=== PATIENT | male | born 1960 | race Caucasian/White ===

== ENCOUNTER 2021-02-20 20:48 | Emergency (ER) | payer OTHER, MEDICARE ==
[2021-02-21 02:12] LABS: AMPHETAMINES NEGATIVE (NEGATIVE); BARBITURATES NEGATIVE (NEGATIVE); BILIRUBIN NEGATIVE (NEGATIVE); BLOOD NEGATIVE Ery/uL (NEGATIVE); CLARITY CLEAR (CLEAR); COLOR YELLOW (YELLOW); ECSTASY (MDMA) NEGATIVE (NEGATIVE); GLUCOSE (U) 2+ mg/dL (NORMAL); LEUKOCYTES NEGATIVE Leu/uL (NEGATIVE); MARIJUANA (THC) NEGATIVE (NEGATIVE); METHADONE NEGATIVE (NEGATIVE); NITRITE NEGATIVE (NEGATIVE); OPIATES NEGATIVE (NEGATIVE); OXYCODONE NEGATIVE (NEGATIVE); PROTEIN 2+ mg/dL (NEGATIVE); SPECIFIC GRAVITY 1.025 (1.001-1.030); UROBILINOGEN 0.2 mg/dL (0.2-1.0)
[2021-02-21 02:23] LABS: SPERM PRESENT; SQUAMOUS EPITHELIAL CELLS RARE; URINARY WBC RARE
[2021-02-21 02:46] LABS: BASOPHIL 0.6 % (0-2); EOSINOPHIL 2.6 % (0-5); HGB 11.6 g/dl (13.2-18.0); LYMPHOCYTE 33.3 % (15-48); MCH 28.6 pg (25.0-31.0); MCHC 31.4 g/dL (32.0-36.0); MCV 91.4 fL (78.0-100.0); MONOCYTE 7.3 % (0-12); NEUTROPHIL 54.9 % (41-80); NRBC 0.2; PLT 169 K/uL (150-400); RBC 4.05 M/uL (4.70-6.00); RDW 14.7 % (11.5-14.0); WBC 8.7 K/uL (4.0-10.5)
[2021-02-21 03:05] LABS: ACETAMINOPHEN (TYLENOL) < 2.0 ug/mL (10.0-30.0); ALBUMIN 2.9 g/dL (3.4-5.0); ALKALINE PHOSHATASE 73 U/L (46-116); ALT 31 U/L (16-63); AST 18 U/L (15-37); BILIRUBIN - TOTAL 0.2 mg/dL (0.2-1.0); BUN 24 mg/dL (7-18); BUN/CREAT RATIO (CALC) 19.5 RATIO; CHLORIDE 102 mmol/L (98-107); CO2 (BICARBONATE) 31 mmol/L (21-32); CREATININE 1.23 mg/dL (0.67-1.17); GLOBULIN (CALCULATION) 3.8 g/dL; GLUCOSE 358 mg/dL (74-106); POTASSIUM 4.4 mmol/L (3.5-5.1); TOTAL PROTEIN 6.7 g/dL (6.4-8.2)
[2021-02-21 03:33] LABS: CORONAVIRUS 2019 SARS-COV-2 NEGATIVE (NEGATIVE); INFLUENZA A NAA NEGATIVE (NEGATIVE)
== END 2021-02-21 05:48 | disposition home or self-care (01) ==
LOC: FER 20:48
PROVIDERS: Internal Medicine
DX: F20.9 Schizophrenia, unspecified (principal); F31.9 Bipolar disorder, unspecified; E11.22 Type 2 diabetes mellitus with diabetic chronic kidney disease; E11.65 Type 2 diabetes mellitus with hyperglycemia; N18.9 Chronic kidney disease, unspecified; D63.1 Anemia in chronic kidney disease; F17.210 Nicotine dependence, cigarettes, uncomplicated; Z20.822 Contact with and (suspected) exposure to COVID-19
CPT/HCPCS: 36415; 80053; 80305; 81001; 85025; 99284; G0480; U0002

== ENCOUNTER 2021-04-30 17:28 | Emergency (ER) | payer MEDICARE, OTHER ==
[2021-04-30 18:47] LABS: BASOPHIL 0.8 % (0-2); EOSINOPHIL 4.4 % (0-5); HGB 11.2 g/dl (13.2-18.0); LYMPHOCYTE 33.7 % (15-48); MCH 28.5 pg (25.0-31.0); MCHC 31.1 g/dL (32.0-36.0); MCV 91.6 fL (78.0-100.0); MPV 11.8 fL (6.0-9.5); NEUTROPHIL 52.3 % (41-80); NRBC 0; PLT 170 K/uL (150-400); RBC 3.93 M/uL (4.70-6.00); RDW 14.6 % (11.5-14.0); WBC 7.2 K/uL (4.0-10.5)
[2021-04-30 19:11] LABS: ALBUMIN 2.9 g/dL (3.4-5.0); BILIRUBIN - TOTAL 0.2 mg/dL (0.2-1.0); BUN/CREAT RATIO (CALC) 11.5 RATIO; CREATININE 1.3 mg/dL (0.67-1.17); GLOBULIN (CALCULATION) 3.6 g/dL; POTASSIUM 3.5 mmol/L (3.5-5.1); TOTAL PROTEIN 6.5 g/dL (6.4-8.2)
[2021-04-30 20:16] LABS: CORONAVIRUS 2019 SARS-COV-2 NEGATIVE (NEGATIVE); INFLUENZA A NAA NEGATIVE (NEGATIVE)
[2021-04-30 21:58] LABS: BILIRUBIN NEGATIVE (NEGATIVE); BLOOD TRACE-INTACT Ery/uL (NEGATIVE); CLARITY CLEAR (CLEAR); COLOR YELLOW (YELLOW); GLUCOSE (U) NORMAL (NORMAL); LEUKOCYTES NEGATIVE Leu/uL (NEGATIVE); NITRITE NEGATIVE (NEGATIVE); PROTEIN 3+ mg/dL (NEGATIVE); SPECIFIC GRAVITY 1.025 (1.001-1.030); UROBILINOGEN 0.2 mg/dL (0.2-1.0)
[2021-04-30 22:09] LABS: RENAL EPITHELIAL CELLS RARE; URINARY RBC RARE
== END 2021-04-30 22:50 | disposition home or self-care (01) ==
LOC: FER 17:28
PROVIDERS: Emergency Medicine
DX: E83.42 Hypomagnesemia (principal); R10.9 Unspecified abdominal pain; M25.521 Pain in right elbow; E11.9 Type 2 diabetes mellitus without complications; I10 Essential (primary) hypertension; J44.9 Chronic obstructive pulmonary disease, unspecified; F03.90 Unspecified dementia, unspecified severity, without behavioral disturbance, psychotic disturbance, mood disturbance, and anxiety; Z20.822 Contact with and (suspected) exposure to COVID-19; W19.XXXA Unspecified fall, initial encounter; Y92.129 Unspecified place in nursing home as the place of occurrence of the external cause
CPT/HCPCS: 36415; 70450; 71250; 72125; 80053; 81001; 82140; 83735; 85025; 93005; J3475; U0002

== ENCOUNTER 2021-08-18 12:10 | Emergency (ER) | payer OTHER | END 2021-08-18 15:47 | disposition home or self-care (01) | LOC: FER 12:10 | DX: S76.011A Strain of muscle, fascia and tendon of right hip, initial encounter (principal); S96.912A Strain of unspecified muscle and tendon at ankle and foot level, left foot, initial encounter; I10 Essential (primary) hypertension; E11.9 Type 2 diabetes mellitus without complications; W19.XXXA Unspecified fall, initial encounter; Y92.009 Unspecified place in unspecified non-institutional (private) residence as the place of occurrence of the external cause | CPT/HCPCS: 70450; 72125; 73502; 73610 ==

== ENCOUNTER 2021-08-25 17:56 | Inpatient (IN) | payer MEDICARE, OTHER ==
[~2021-08-25] VITALS: Ht 172.7 cm; Wt 115.7 kg
[2021-08-25] MEDS ORDERED: LIPITOR 10MG TA10 MG PO (23:24)
[2021-08-25] MEDS ORDERED: VITAMIN B-121000 MC1 PO (23:25)
[2021-08-25] MEDS ORDERED: COREG 3.125M3.125 MG PO (23:25)
[2021-08-25] MEDS ORDERED: FENOFIBRATE134 MG PO (23:27)
[2021-08-25] MEDS ORDERED: VITAMIN D21250 MCG PO (23:27)
[2021-08-25] MEDS ORDERED: FLONASE ALLER15.8 ML (23:28)
[2021-08-25] MEDS ORDERED: FOLIC ACID1 MG PO (23:29)
[2021-08-25] MEDS ORDERED: NEURONTIN300 MG PO (23:30)
[2021-08-25] MEDS ORDERED: GVOKE HYPO1 MG/0.2 M IJ (23:31)
[2021-08-25] MEDS ORDERED: INVEGA SUS234 MG/1.5 IM (23:32)
[2021-08-25] MEDS ORDERED: KLONOPIN1 MG PO (23:33)
[2021-08-25] MEDS ORDERED: CONSTULOSE10 GM/15 M PO (23:34)
[2021-08-25] MEDS ORDERED: XALATAN2.5 ML EYEBOTH (23:35)
[2021-08-25] MEDS ORDERED: KEPPRA100 MG/1 M PO (23:35)
[2021-08-25] MEDS ORDERED: METFORMIN HCL500 MG PO (23:36)
[2021-08-25] MEDS ORDERED: LEVOTHYROXINE150 MC1 PO (23:36)
[2021-08-25] MEDS ORDERED: MUCINEX 600MG600 MG PO (23:37)
[2021-08-25] MEDS ORDERED: PROTONIX 40MG T40 MG PO (23:37)
[2021-08-25] MEDS ORDERED: WEGOVY0.5 MG/0.5 SC (23:38)
[2021-08-25] MEDS ORDERED: FLOMAX0.4 MG PO (23:39)
[2021-08-25] MEDS ORDERED: SYMBICORT 80-10.2 GM INH (23:39)
[2021-08-25] MEDS ORDERED: ZYRTEC10 M3 PO (23:40)
[2021-08-25] MEDS ORDERED: SPIRIVA18 MCG INH (23:41)
[2021-08-25] MEDS ORDERED: BIOFREEZE89 ML TOP (23:43)
[2021-08-25] MEDS ORDERED: TEGRETOL200 MG PO (23:44)
[2021-08-25] MEDS ORDERED: ASPIRIN EC81 MG PO (23:44)
[2021-08-25] MEDS ORDERED: MAG-OXIDE 400M400 MG PO (23:45)
[2021-08-25] MEDS ORDERED: PRINIVIL20 MG PO (23:45)
[2021-08-25] MEDS ORDERED: VASCEPA1 GM PO (23:46)
[2021-08-25] MEDS ORDERED: ACETAMINOPHEN325 MG PO (23:46)
[2021-08-25] MEDS ORDERED: LANTUS **100 UNITS/ SC (23:49)
[2021-08-25] MEDS ORDERED: NOVOLOG100 UNIT/1 SC (23:50)
[2021-08-27 07:15] LABS: BUN/CREAT RATIO (CALC) 15.4 RATIO; CREATININE 1.17 mg/dL (0.67-1.17); POTASSIUM 3.7 mmol/L (3.5-5.1)
--- NOTE | 2021-08-27 09:56 | NUR ---
PATIENT IS NOT WANTING TO BE BOTHERED WITH THE MORNING, WILL NOT OPEN EYES BUT WILL TAKE MEDICATIONS. STATES HE WANTS TO BE LEFT ALONE, PATIENT HAS NOT TOUCHED BREAKFAST.
[2021-08-28 07:23] LABS: BUN/CREAT RATIO (CALC) 15.4 RATIO; CREATININE 1.23 mg/dL (0.67-1.17); POTASSIUM 4.1 mmol/L (3.5-5.1)
[2021-08-29 06:05] LABS: BUN/CREAT RATIO (CALC) 19.2 RATIO; CREATININE 1.46 mg/dL (0.67-1.17); POTASSIUM 4.3 mmol/L (3.5-5.1)
--- NOTE | 2021-08-29 11:27 | NUR ---
PATIENT HAS BEEN VERY PLEASANT TODAY. HAS DONE EVERYTHING ASKED WITH NO ISSUES. PATIENT'S SPEECH IS GARBLED AND AT TIMES HARD TO UMDERSTAND BUT IS VERY COOPERTIVE WITH ANYTHING THAT IS ASKED OF HIM. PATIENT IS EATING AND DRINKING WELL. APPITITE HAS INCREASE. SLEEPS WELL, ISN'T A MORNING PERSON, LIKES TO SLEEP LATE.
--- NOTE | 2021-09-01 15:31 | NUR ---
PER CHARLA, PT STATE GUARDIAN, PT. WOULD NEED TO BE ABLE TO DRAW UP HIS INSULIN AND GIVE IT TO HIMSELF. DISCUSSED WITH NURSE MANDA AND THE CORRECTIONAL CAPTAIN, ILA, WHO BOTH AGREE THAT PT IS NOT ABLE TO REMEMBER TO DRAW UP HIS INSULIN OR BE ABLE TO REMEMBER TO TAKE IT. PER MANDA, PT KEEPS ASKING HER WHAT HIS INSULIN SHOT IS FOR. PER CHARLA, SHE ADVISED THAT SHE HAS APPEALED PT DISCHARGE FROM [facility] WITH [facility].
[2021-09-02 06:50] LABS: BUN/CREAT RATIO (CALC) 17.5 RATIO; CREATININE 1.14 mg/dL (0.67-1.17); POTASSIUM 4.1 mmol/L (3.5-5.1)
[2021-09-02 08:14] LABS: BUN/CREAT RATIO (CALC) 17.3 RATIO; CREATININE 1.1 mg/dL (0.67-1.17); POTASSIUM 4.1 mmol/L (3.5-5.1)
[2021-09-02 18:53] LABS: BUN/CREAT RATIO (CALC) 17.6 RATIO; CREATININE 1.02 mg/dL (0.67-1.17); POTASSIUM 4.3 mmol/L (3.5-5.1)
[2021-09-03 07:07] LABS: ALBUMIN 2.7 g/dL (3.4-5.0); BILIRUBIN - TOTAL 0.2 mg/dL (0.2-1.0); BUN/CREAT RATIO (CALC) 23.2 RATIO; CREATININE 1.12 mg/dL (0.67-1.17); GLOBULIN (CALCULATION) 3.1 g/dL; POTASSIUM 4.2 mmol/L (3.5-5.1); TOTAL PROTEIN 5.8 g/dL (6.4-8.2)
[2021-09-03 08:59] LABS: CHOLESTEROL 178 mg/dL (<200); HDL 36 mg/dL (40-60); LDL - DIRECT 89 mg/dL (<100); TRIGLYCERIDES 367 mg/dL (<150)
--- NOTE | 2021-09-03 18:23 | NUR ---
PATIENT STARTED TO SCRATCH HIS ARM AND MADE IT BLEED, PIC ON CHART
[2021-09-04 07:58] LABS: BUN/CREAT RATIO (CALC) 17.4 RATIO; CREATININE 1.09 mg/dL (0.67-1.17); POTASSIUM 4.2 mmol/L (3.5-5.1)
--- NOTE | 2021-09-04 08:43 | NUR ---
AT 1820 ON 09/03 THE PATIENT WAS BY THE NURSE'S DESK SITTING IN HIS WHEELCHAIR. THE PATIENT HIT THE WINDOW WITH HIS FIST, AND BEGAN TO HIT HIMSELF ON THE LEFT SHOULDER. HE BECAME AGGITATED STATING THAT HE WAS ITCHING AND THEN BEGAN TO SCRATCH HIS LEFT SHOULDER TO THE POINT BLOOD WAS DRAWN. PATIENT WAS TAKEN BACK TO HIS ROOM AND PER MD [place] 10 MG WAS GIVEN IM. WOUND WAS DRESSED, PATIENT RESTING COMFORTABLE.
--- NOTE | 2021-09-04 09:15 | NUR ---
PATIENT IS RESTING, DID NOT WAKE UP FOR BREAKFAST
[2021-09-05 06:36] LABS: HCT 31.5 % (42.0-52.0); MCH 30.2 pg (25.0-31.0); MCHC 34.9 g/dL (32.0-36.0); MCV 86.5 fL (78.0-100.0); RBC 3.64 M/uL (4.70-6.00); RDW 14.4 % (11.5-14.0); WBC 7.1 K/uL (4.0-10.5)
[2021-09-05 06:58] LABS: BUN/CREAT RATIO (CALC) 15.4 RATIO; CREATININE 0.91 mg/dL (0.67-1.17); POTASSIUM 4.1 mmol/L (3.5-5.1)
[2021-09-06 07:01] LABS: ALBUMIN 2.8 g/dL (3.4-5.0); BILIRUBIN - TOTAL 0.3 mg/dL (0.2-1.0); GLOBULIN (CALCULATION) 3.1 g/dL; POTASSIUM 4.5 mmol/L (3.5-5.1); TOTAL PROTEIN 5.9 g/dL (6.4-8.2)
[2021-09-09 07:14] LABS: BUN/CREAT RATIO (CALC) 16.5 RATIO; CREATININE 1.15 mg/dL (0.67-1.17); POTASSIUM 4.4 mmol/L (3.5-5.1)
--- NOTE | 2021-09-13 09:18 | NUR ---
DISCUSSED OBTAINING RE-EVALUATION WITH RUSTY DELONG WITH DR. ARRIOLA FOR POSSIBLE PLACEMENT. RUSTY DELONG CALLED AND CONSULT INITIATED.
[2021-09-16 06:17] LABS: BASOPHIL 0.6 % (0-2); EOSINOPHIL 2.2 % (0-5); HCT 30.2 % (42.0-52.0); HGB 10.4 g/dl (13.2-18.0); LYMPHOCYTE 37.3 % (15-48); MCH 30.5 pg (25.0-31.0); MCHC 34.4 g/dL (32.0-36.0); MCV 88.6 fL (78.0-100.0); MONOCYTE 9.2 % (0-12); MPV 11.1 fL (6.0-9.5); NEUTROPHIL 49.5 % (41-80); NRBC 0; PLT 140 K/uL (150-400); RBC 3.41 M/uL (4.70-6.00); WBC 6.7 K/uL (4.0-10.5)
[2021-09-16 07:23] LABS: ALBUMIN 2.9 g/dL (3.4-5.0); BILIRUBIN - TOTAL 0.2 mg/dL (0.2-1.0); BUN/CREAT RATIO (CALC) 16.2 RATIO; CREATININE 1.05 mg/dL (0.67-1.17); POTASSIUM 4.6 mmol/L (3.5-5.1); TOTAL PROTEIN 5.9 g/dL (6.4-8.2)
[2021-09-18 07:26] LABS: BUN/CREAT RATIO (CALC) 17.5 RATIO; CREATININE 1.03 mg/dL (0.67-1.17); POTASSIUM 4.1 mmol/L (3.5-5.1)
--- NOTE | 2021-09-18 16:27 | NUR ---
SPOKE WITH RADHA, STATE GUARDIAN. SHE ADVISED THAT PT HAS MEDICARE A & B HE HAS [facility] [id number] AND MEDICAID [id number]. HE ALSO HAS MEDICARE PART D REFERRALS CONTINUE TO BE SENT OUT TO [facility]URSING [facility]OM[facility].
[2021-09-19 07:13] LABS: BUN/CREAT RATIO (CALC) 19.8 RATIO; CREATININE 1.06 mg/dL (0.67-1.17); POTASSIUM 3.9 mmol/L (3.5-5.1)
[2021-09-21 06:37] LABS: BUN/CREAT RATIO (CALC) 22.1 RATIO; CREATININE 1.13 mg/dL (0.67-1.17)
[2021-09-22 08:08] LABS: BUN/CREAT RATIO (CALC) 19.1 RATIO; CREATININE 0.94 mg/dL (0.67-1.17); POTASSIUM 4.1 mmol/L (3.5-5.1)
--- NOTE | 2021-09-22 13:23 | NUR ---
MEDICAL CLAIMS ASSISTANT ENTERED ROOM WITH LUNCH AND PATIENT BECAME UPSET SLUNG FOOD AND CALL LIGHT STATING HE DIDN'T WANT THAT. OIL PROGRAM COMPLIANCE SPECIALIST CALLED WHO ATTEMPTED TO CALM PATIENT. PATIENT SLUNG TABLE AT IMPROVEMENT RN CLIMBING OOB AND YELLING, REFUSED TO SIT BACK DOWN AND PATIENT WAS VERY UNSTABLE THUS REQUIRING CONTACT GUARD FOR SAFETY AND PATIENT UPSET ABOUT THIS. [place] HANNA CALLED AND STAFF RESPONDED. PATIENT CONTINUES TO YELL BUT WAS ASSISTED BACK TO BED SUCCESSFULLY. GEODON GIVEN PER ORDER. PATIENT UPSET YELLING HE DID NOT THROW HIS FOOD, REFUSING TO BE REDIRECTED. SECURITY IN ROOM AT THIS TIME PATIENT HAD ALSO YANKED AT HIS COVERS, SLINGING HIS ARMS AGAINST THE SIDERAILS, HITTING HIMSELF AND WAS UNABLE TO REDIRECT
[2021-09-23 07:51] LABS: BUN/CREAT RATIO (CALC) 18.1 RATIO; CREATININE 1.05 mg/dL (0.67-1.17)
--- NOTE | 2021-09-24 02:41 | NUR ---
PATIENT HAS BEEN CAUGHT WITH SEVERAL CANS OF SODA HE HAD GOTTEN FROM [employer] IN HALLWAY, PATIENT UPSET WHEN STAFF REMOVED FROM POSSESSION. PATIENT EDUCATED ON FLUID RESTRICTION
--- NOTE | 2021-09-24 14:24 | NUR ---
PATIENT GETTING FRUSTRATED THAT CERTAIN STAFF MEMBERS ARE NOT WORKING TODAY, AND GETTING MAD AND PUNCHING HISSELF IN THE HEAD AND PUNCHING THE WINDOW AT NUSING STATION. PATIENT ALSO REFUSING TO EAT LUNCH DUE TO THIS. CALL PLACES TO [facility] [place] FOR ANOTHER EVALUATION.
--- NOTE | 2021-09-24 22:31 | NUR ---
PATIENT STATES HE WANTED A SHOWER, SO PATIENT WAS EDUATED THAT THE MALE AID WOULD ASSIST HIM IF HE WANTED A SHOWER BECAUSE AT THIS TIME THE NURSES ARE BUSY. HE STATED THAT HE WAS NOT TAKING A SHOWER UNLESS A FEMALE WAS HELPING HIM. PATIENT WALKED OUT IN THE HALLWAY WITH THE AIDE AND CONTINUED TO ARGUE, PATIENT STATED CLAWING AT HIS SKIN. EDUCATED NOT TO SCATCH DUE TO RISK FOR SKIN INJURY.
[2021-09-25 07:14] LABS: HCT 30.2 % (42.0-52.0); HGB 10.6 g/dl (13.2-18.0); MCH 31.1 pg (25.0-31.0); MCHC 35.1 g/dL (32.0-36.0); MCV 88.6 fL (78.0-100.0); RBC 3.41 M/uL (4.70-6.00); RDW 14.4 % (11.5-14.0); WBC 5.7 K/uL (4.0-10.5)
[2021-09-25 08:01] LABS: BILIRUBIN - TOTAL 0.3 mg/dL (0.2-1.0); BUN/CREAT RATIO (CALC) 15.4 RATIO; CREATININE 1.04 mg/dL (0.67-1.17); GLOBULIN (CALCULATION) 3.2 g/dL; MAGNESIUM 1.4 mg/dL (1.8-2.4); PHOSPHORUS 3.8 mg/dL (2.6-4.7); POTASSIUM 4.1 mmol/L (3.5-5.1); TOTAL PROTEIN 6.2 g/dL (6.4-8.2)
[2021-09-26 06:30] LABS: HCT 28.9 % (42.0-52.0); HGB 10.1 g/dl (13.2-18.0); MCH 30.8 pg (25.0-31.0); MCHC 34.9 g/dL (32.0-36.0); MCV 88.1 fL (78.0-100.0); RBC 3.28 M/uL (4.70-6.00); RDW 14.4 % (11.5-14.0); WBC 5.4 K/uL (4.0-10.5)
[2021-09-26 06:53] LABS: BUN/CREAT RATIO (CALC) 17.5 RATIO; CREATININE 0.97 mg/dL (0.67-1.17); POTASSIUM 4.1 mmol/L (3.5-5.1)
--- NOTE | 2021-09-28 06:16 | NUR ---
PATIENT GOT SELF UP OUT OF BED UNATTENDED, PATIENT UP AT NURSES STATION REQUESTING HIS MORNING MEDICATIONS, ASKING WHERE HIS NURSES ARE, STAFF NURSE EXPLAINED TO PATIENT THAT DAYSHIFT NURSES WERE NOT HERE YET, PATIENT BEGAN SPITTING IN FLOOR
--- NOTE | 2021-09-30 23:39 | NUR ---
PATIENT SITTING UP AT NURSES STATION, PATIENT UPSET OVER NOT GOING OUTSIDE. PATIENT BEGAN KICKING LEGS AGAINST FLOOR AND FOOT RESTS ON WHEELCHAIR. ABLE TO ASK RESIDENT TO SELF CALM
--- NOTE | 2021-10-01 16:01 | NUR ---
KAREN MET WITH STAFF FROM [facility] THIS DATE. SHANNONJUVENTINO FRANCIS OFFERED HIM A TO COME TO THEIR FACIITY. KAREN HAS NOT ACCEPTED AT THIS TIME, LEANNSED STATE ELIAN GARCIA OF THIS INFORMATION.
[2021-10-04 06:43] LABS: POTASSIUM 4.1 mmol/L (3.5-5.1)
--- NOTE | 2021-10-05 05:41 | NUR ---
PATIENT HAS BEEN AWAKE AT NURSES STATION ALL NIGHT, MULTI ATTEMPTS MADE TO ASSIST WITH GOING TO BED, BUT REFUSED.
--- NOTE | 2021-10-05 14:48 | NUR ---
PATIENT AT [facility] SULKING THAT HE'S JUST NOT GOING THEN TO THE BLESSED ASSURANCE SINCE HE STATED HE WAS TOLD HE WAS GOING WEDNESDAY AND NOW CHANGED TO WEDNESDAY. HOLLERED TO STAFF TO CALL THE DISCHARGE PLANNERS AND MANAGEMENT BECAUSE HE WANTS TO KNOW "RIGHT NOW, TODAY" WHAT THE PLAN IS. FOUND AT DOOR OF BATHROOM ATTEMPTING TO TAKE SELF TO [facility], WAS REDIRECTED
[2021-10-06] MEDS ORDERED: CLONAZEPAM0.5 MG PO (17:54)
[2021-10-06] MEDS ORDERED: SYMBICORT 80-10.2 GM INH (17:54)
[2021-10-06] MEDS ORDERED: FENOFIBRATE67 MG PO (17:54)
[2021-10-06] MEDS ORDERED: FLOMAX0.4 MG PO (17:54)
[2021-10-06] MEDS ORDERED: PROTONIX 40MG T40 MG PO (17:54)
[2021-10-06] MEDS ORDERED: LEVOTHYROXINE150 MC1 PO (17:54)
[2021-10-06] MEDS ORDERED: FOLIC ACID1 MG PO (17:54)
[2021-10-06] MEDS ORDERED: HYDRALAZINE 10M10 MG PO (17:54)
[2021-10-06] MEDS ORDERED: METFORMIN HCL500 MG PO (17:54)
[2021-10-06] MEDS ORDERED: COREG 3.125M3.125 MG PO (17:54)
[2021-10-06] MEDS ORDERED: NORVASC5 MG PO (17:54)
[2021-10-06] MEDS ORDERED: FLONASE ALLER15.8 ML (17:54)
[2021-10-06] MEDS ORDERED: LEVETIRACETAM500 MG PO (17:54)
[2021-10-06] MEDS ORDERED: NEURONTIN300 MG PO (17:54)
[2021-10-06] MEDS ORDERED: TEGRETOL200 MG PO (17:54)
[2021-10-06] MEDS ORDERED: ALOGLIPTIN12.5 MG PO (17:54)
[2021-10-06] MEDS ORDERED: ASPIRIN EC81 MG PO (17:54)
[2021-10-06] MEDS ORDERED: XALATAN2.5 ML EYEBOTH (17:54)
[2021-10-06] MEDS ORDERED: SPIRIVA18 MCG INH (17:54)
[2021-10-06] MEDS ORDERED: MAG-OXIDE 400M400 MG PO (17:54)
[2021-10-06] MEDS ORDERED: PRINIVIL20 MG PO (17:54)
[2021-10-06] MEDS ORDERED: LIPITOR 10MG TA10 MG PO (17:54)
--- NOTE | 2021-10-07 15:53 | NUR ---
10/07/21 Mr. Bui was discharged to [facility] as arranged by yulissa Aguirre. [facility] staff provided transportation.
== END 2021-10-07 09:20 | disposition home or self-care (01) | DRG 643 ==
LOC: FMS 17:56
PROVIDERS: Allergy & Immunology Allergy; Internal Medicine; Nurse Practitioner; Nurse Practitioner Acute Care; ADMIT Family Medicine
PROC: B24BZZZ Ultrasonography of Heart with Aorta (ICD-10-PCS; principal; 2021-08-29)
DX: E22.2 Syndrome of inappropriate secretion of antidiuretic hormone (principal); G93.41 Metabolic encephalopathy; N17.9 Acute kidney failure, unspecified; L97.829 Non-pressure chronic ulcer of other part of left lower leg with unspecified severity; L97.819 Non-pressure chronic ulcer of other part of right lower leg with unspecified severity; E66.9 Obesity, unspecified; Z20.822 Contact with and (suspected) exposure to COVID-19; E11.65 Type 2 diabetes mellitus with hyperglycemia; E78.5 Hyperlipidemia, unspecified; E03.9 Hypothyroidism, unspecified; F17.200 Nicotine dependence, unspecified, uncomplicated; Z60.9 Problem related to social environment, unspecified; I13.10 Hypertensive heart and chronic kidney disease without heart failure, with stage 1 through stage 4 chronic kidney disease, or unspecified chronic kidney disease; E11.22 Type 2 diabetes mellitus with diabetic chronic kidney disease; N18.2 Chronic kidney disease, stage 2 (mild); D63.1 Anemia in chronic kidney disease; D50.9 Iron deficiency anemia, unspecified; I87.2 Venous insufficiency (chronic) (peripheral); E88.09 Other disorders of plasma-protein metabolism, not elsewhere classified; E11.622 Type 2 diabetes mellitus with other skin ulcer; E11.40 Type 2 diabetes mellitus with diabetic neuropathy, unspecified; F20.9 Schizophrenia, unspecified; F31.9 Bipolar disorder, unspecified; G31.84 Mild cognitive impairment of uncertain or unknown etiology; F70 Mild intellectual disabilities; G40.909 Epilepsy, unspecified, not intractable, without status epilepticus; N40.0 Benign prostatic hyperplasia without lower urinary tract symptoms; D69.6 Thrombocytopenia, unspecified; Z87.820 Personal history of traumatic brain injury; Z79.899 Other long term (current) drug therapy
CPT/HCPCS: 36415; 70551; 74018; 80048; 80053; 80061; 80305; 81001; 82024; 82962; 83036; 83735; 83880; 83935; 84100; 84145; 84300; 84439; 84443; 84478; 84484; 85025; 94010; 94640; 97162; 97166; G0378; G0480; J1650; J1815; J2426; J3486; J7040; U0002